=== PATIENT | female | born 1975 | race Caucasian/White ===

== ENCOUNTER 2017-02-11 09:05 | Outpatient (CLI) | payer OTHER ==
[2017-02-11 09:34] LABS: eGFR (African) > 60; eGFR (Non-African) > 60
== END 2017-02-11 09:06 ==
LOC: LAB 09:05
PROVIDERS: ATTEND Nurse Practitioner Family
DX: R94.5 Abnormal results of liver function studies (principal)
CPT/HCPCS: 36415; 80053

== ENCOUNTER 2017-02-14 08:34 | Outpatient (CLI) | payer OTHER ==
[2017-02-14 09:50] LABS: eGFR (African) > 60; eGFR (Non-African) > 60
[2017-02-14 21:20] LABS: HEPATITIS A AB, TOTAL NEGATIVE (NEGATIVE)
== END 2017-02-14 08:35 ==
LOC: LAB 08:34
PROVIDERS: ATTEND Nurse Practitioner Family
DX: R94.5 Abnormal results of liver function studies (principal)
CPT/HCPCS: 36415; 80053; 82104; 82390; 82784; 83516; 86704; 86706; 86708; 86709; 86803; 87340